=== PATIENT | male | born 1990 ===

== ENCOUNTER 2019-08-27 14:17 | Emergency (ER) | payer OTHER ==
[2019-08-27] MEDS ORDERED: ONDANSETRON 4 MG/2 ML VIAL IVP STA (14:59)
[2019-08-27] MEDS ORDERED: HYDROmorphone 0.5 MG/0.5 ML SYRINGE IVP STA (14:59)
--- NOTE | 2019-08-27 15:03 | ED ---
Upper Extremity HPI <Kishan Davila - Last Filed: 08/27/19 16:31> - General Source: patient, RN notes reviewed Mode of arrival: ambulatory Limitations: no limitations <Davdi Mckinley - Last Filed: 08/27/19 16:36> - General Chief Complaint: Extremity Injury, Upper Stated Complaint: Wrist Injury Time Seen by Provider: 08/27/19 14:55 - History of Present Illness Initial Comments: 28-year-old male presents emergency Department chief complaint of fall, right wrist injury. Patient states that he was jumping on a trailer to transient states that he caught it but states she slipped falling forward onto his arm. Patient has a deformity to his right wrist. He is [id number] no other injuries noted. (David Mckinley) - Related Data Previous Rx's Medication Instructions Recorded Ibuprofen [Motrin] 600 mg PO Q8HR PRN #30 tab 08/27/19 Allergies Allergy/AdvReac Type Severity Reaction Status Date / Time No Known Allergies Allergy Verified 08/27/19 15:05 Review of Systems ROS Other: All systems not noted in ROS Statement are negative. <Kishan Davila - Last Filed: 08/27/19 16:31> ROS Other: All systems not noted in ROS Statement are negative. <David Mckinley - Last Filed: 08/27/19 16:36> ROS Statement: Those systems with pertinent positive or pertinent negative responses have been documented in the HPI. Past Medical History Past Medical History: No Reported History History of Any Multi-Drug Resistant Organisms: None Reported Past Surgical History: No Surgical Hx Reported Past Psychological History: No Psychological Hx Reported Smoking Status: Never smoker Past Alcohol Use History: Occasional Past Drug Use History: None Reported <David Mckinley - Last Filed: 08/27/19 16:36> General Exam Limitations: no limitations General appearance: alert, in no apparent distress Head exam: Present: atraumatic, normocephalic, normal inspection Eye exam: Present: normal appearance, PERRL, EOMI. Absent: scleral icterus, conjunctival injection, periorbital swelling ENT exam: Present: normal exam, normal oropharynx, mucous membranes moist Neck exam: Present: normal inspection, full ROM. Absent: tenderness, meningismus, lymphadenopathy Respiratory exam: Present: normal lung sounds bilaterally. Absent: respiratory distress, wheezes, rales, rhonchi, stridor Cardiovascular Exam: Present: regular rate, normal rhythm, normal heart sounds. Absent: systolic murmur, diastolic murmur, rubs, gallop, clicks Extremities exam: Present: other (Right wrist there is obvious deformity, appears to be colles fracture, radial pulses equal bilaterally, no hand tenderness no proximal forearm tenderness) Back exam: Present: full ROM. Absent: tenderness, CVA tenderness (R), CVA tenderness (L) Skin exam: Present: warm, dry, intact, normal color. Absent: rash <David Mckinley - Last Filed: 08/27/19 16:36> Course Vital Signs 08/27/19 08/27/19 08/27/19 14:42 15:44 16:11 Temperature 99.0 F Pulse Rate 50 L 62 88 Respiratory 16 18 16 Rate Blood Pressure 119/76 130/76 135/91 O2 Sat by Pulse 100 98 99 Oximetry 08/27/19 16:26 Temperature Pulse Rate 89 Respiratory 16 Rate Blood Pressure 146/99 O2 Sat by Pulse 98 Oximetry Procedures - Orthopedic Fracture Reduction Fracture #1 Consent Obtained: verbal consent, written consent Side: right Fracture Reduction Location: radius Analgesia: procedural sedation Technique: direct manipulation, finger traps Post Reduction X-rays Demonstrate: anatomical reduction Post-Reduction Neuro Exam: intact Post-Reduction Vascular Exam: intact Splint Applied: Yes Patient Tolerated Procedure: well, no complications - Orthopedic Splinting/Casting Injury #1 Side: right Upper Extremity Injury Location: short arm, wrist Upper Extremity Immobilizer: sugar tong splint - Procedural Sedation Procedural Sedation Start Time: 16:12 Procedural Sedation Stop Time: 16:33 Indications: fracture/dislocation reduction Mallampati Airway Score: 2 Preparation: cloth examiner machine applied, pulse oximeter, capnometry used, supplemental O2 applied IV Etomidate Dose (mgs): 20 Complications: none Patient Tolerated Procedure: well, no complications <Kishan Davila - Last Filed: 08/27/19 16:31> Medical Decision Making <David Mckinley - Last Filed: 08/27/19 16:36> - Medical Decision Making Patient found to have displaced radial fracture, this was reduced with constipation with Dr. Davila. Patient tolerated well no complications. Patient was splinted and will follow-up with orthopedics. (David Mckinley) Disposition <Kishan Davila - Last Filed: 08/27/19 16:31> Is patient prescribed a controlled substance at d/c from ED?: No Time of Disposition: 16:36 <David Mckinley - Last Filed: 08/27/19 16:36> Clinical Impression: Displaced fracture of distal end of right radius Disposition: HOME SELF-CARE Condition: Stable Instructions (If sedation given, give patient instructions): Moderate Sedation (ED), Arm Fracture in Adults (ED) Additional Instructions: Please return to the Emergency Department if symptoms worsen or any other concerns. Prescriptions: Ibuprofen [Motrin] 600 mg PO Q8HR PRN #30 tab PRN Reason: Pain Referrals: None,Stated [Primary Care Provider] - 1-2 days Boris Valente DO [Medical Doctor] - 1-2 days
[2019-08-27] MEDS ORDERED: ETOMIDATE 2 MG/ML 10 ML VIAL IV STA (15:28)
[2019-08-27] MEDS ORDERED: HYDROmorphone 1 MG/ML 1 ML SYRINGE IVP STA (15:37)
--- NOTE | 2019-08-27 15:40 | XR ---
Right wrist HISTORY: Trauma and pain 3 views the right wrist There is a comminuted posteriorly displaced and angled distal right radial metaphyseal fracture. No d islocation. There is associated soft tissue swelling present. Question associated ulnar styloid fract ure. IMPRESSION: Right wrist fractures as described.
[2019-08-27] MEDS ORDERED: ACET/COD 300 MG/30 MG STARTER PACK 6 TAB BTL PO STA (16:36)
--- NOTE | 2019-08-27 16:43 | XR ---
Limited right wrist HISTORY: Post reduction 2 views of the right wrist There has been interval reduction of patient's wrist fracture. There is overlying splint present. IMPRESSION: Interval reduction. Fractures in splint.
[2019-08-27 17:15] VITALS: BP 110/72; PULSE 70; RESP 16; TEMP 98.7
== END 2019-08-27 17:10 | disposition home or self-care (01) ==
LOC: EC 14:17
DX: S52.501A Unspecified fracture of the lower end of right radius, initial encounter for closed fracture (principal); W17.89XA Other fall from one level to another, initial encounter; Y93.39 Activity, other involving climbing, rappelling and jumping off; Y92.89 Other specified places as the place of occurrence of the external cause
CPT/HCPCS: 73100; 73110; 99283; 25605; 99152; 96374; 96375; 96376; J2405; J1170 ×2

== ENCOUNTER → 2019-09-06 | Outpatient (CLI) | payer SELFPAY ==
--- NOTE | 2019-09-07 13:06 | CT ---
EXAMINATION TYPE: CT wrist RT wo con DATE OF EXAM: 09/06/2019 COMPARISON: 08/27/2019 plain film HISTORY: Right wrist pain after fall. CT DLP: 261 mGycm Automated exposure control for dose reduction was used. TECHNIQUE: Axial images 3 mm thick sections. Reconstructed images in the coronal and sagittal plane. FINDINGS: There is a comminuted fracture of the distal metaphyseal right radius. Small avulsion of the ulnar st yloid is present. Alignment appears preserved. No additional fractures are evident. Images are obtained through a splin t. IMPRESSION: 1. COMMINUTED FRACTURE DISTAL METAPHYSEAL RADIUS. 2. ULNAR STYLOID AVULSION
== END | disposition home or self-care (01) ==
LOC: RADCTMAIN 16:21
PROVIDERS: ATTEND Orthopaedic Surgery
DX: S52.91XA Unspecified fracture of right forearm, initial encounter for closed fracture (principal)